=== PATIENT | male | born 2000 | race Caucasian/White ===

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

== ENCOUNTER → 2023-01-18 | Outpatient (CLI) | payer BC ==
[~2023-01-18] MED LIST changes: +MONT-5 PO; +NAPR-849 PO; -NAPR250T4 PO; -SING10TA32 PO
[2023-01-18 11:27] LABS: ALBUMIN 4.1 G/DL (3.2-5.2); ALKALINE PHOSPHATASE 69 U/L (46-116); ALT/SGPT 140 U/L (7.0-40); AST/SGOT 36 U/L (<34); BILIRUBIN,DIRECT 0.2 MG/DL (<0.4); BILIRUBIN,TOTAL 0.7 MG/DL (0.3-1.2); IRON (FE) 106 UG/DL (65-175); PERCENT SATURATION 28.6 % (19.7-50.0); TOTAL IRON BINDING CAPACITY 371 UG/DL (250-425); TOTAL PROTEIN 7.2 G/DL (5.7-8.2)
[2023-01-18 11:28] LABS: FERRITIN 71.4 NG/ML (10.5-307.3)
[2023-01-18 12:06] LABS: HEPATITIS B CORE ANTIBODY IGM NEGATIVE (NEGATIVE); HEPATITIS C VIRUS ABY INDEX 0.08 INDEX (<0.8)
== END ==
LOC: M RAD 10:03 → M LAB 10:03
PROVIDERS: ATTEND Physician Assistant
DX: R79.0 Abnormal level of blood mineral (principal); R74.01 Elevation of levels of liver transaminase levels; K76.89 Other specified diseases of liver; N13.30 Unspecified hydronephrosis; N13.4 Hydroureter

== ENCOUNTER → 2023-01-30 | Outpatient (CLI) | payer BC | LOC: M RAD 17:39 | PROVIDERS: ATTEND Physician Assistant | DX: N13.4 Hydroureter (principal); Q63.1 Lobulated, fused and horseshoe kidney ==